=== PATIENT | female | born 1975 | race Caucasian/White ===

== ENCOUNTER 2021-05-23 11:56 | Outpatient (CLI) | payer OTHER, SELFPAY ==
--- NOTE | 2021-05-23 | ECG_ITS ---
Measurements Intervals [place] Rate: 55 P: 37 WY: 153 QRS: 32 QRSD: 89 T: 36 QT: 401 QTc: 384 Interpretive Statements SINUS BRADYCARDIA BASELINE ARTIFACT- III, V3 BORDERLINE ECG Electronically Signed On 05-23-2021 13:00:52 TAPER/FINISHER by Clive Maurice D.O.
== END 2021-05-23 11:57 | disposition home or self-care (01) ==
LOC: ANHCARD 12:10
PROVIDERS: Visit Provider Surgery Plastic and Reconstructive Surgery
DX: Z01.818 Encounter for other preprocedural examination (principal); R94.31 Abnormal electrocardiogram [ECG] [EKG]
CPT/HCPCS: 93005

== ENCOUNTER 2022-04-03 12:27 | Outpatient (CLI) | payer OTHER, SELFPAY ==
[2022-04-03 13:34] LABS: Hematocrit 35.4 % (37.0-47.0); Hemoglobin 12.1 g/dL (12.0-15.0)
== END 2022-04-03 12:28 | disposition home or self-care (01) ==
PROVIDERS: Anesthesiology; Visit Provider Surgery Plastic and Reconstructive Surgery
DX: Z41.1 Encounter for cosmetic surgery (principal)
CPT/HCPCS: 36415; 85014; 85018

== ENCOUNTER 2022-04-09 01:08 | Day surgery (SDC) | payer OTHER, SELFPAY ==
[2022-04-01 12:05] VITALS: BMI 36.6
--- NOTE | 2022-04-01 12:09 | PC.NURSE ---
Report to the Outpatient Waiting Room, entrance under the green pavilion located off [facility], at time 0600 on date 04/09/22. Planned Procedure Time: 0730. Time changes happen often and if your time is changed the preop area will call you the afternoon before. - You and your visitor will be asked to self-screen and do not enter if you have any COVID symptoms. - We encourage only one visitor and NO visitors under age 16 are allowed at this time. Your visitor will receive communication by the phone number that is given day of service. - The patient visitor is requested to social distance or may leave the building when not with patient due to restrictions. - A mask is OPTIONAL within the hospital. Patients may have clear liquids (water, carbonated beverages, clear teas, apple juice) until 3 hours prior to surgery with a maximum of 20 ounces. - No food from midnight until time of surgery Take the following medications with a SIP of water the morning of surgery: BUPROPION, BUSPIRONE, ESCITALOPRAM, LAMOTRIGINE Medications to discontinue per physician: VITAMINS Date to take last dose: 04/05/22 Please no make-up, nail venezuelan, hairspray, perfume, deodorant, or body powder the day of surgery. No jewelry (including any body piercings) or valuables the day of surgery, leave them at home. Please take a shower or bath the night before, or the morning of, surgery with an antibacterial soap. Wear comfortable, loose fitting clothing. - Jewelry must be removed prior to entering the operating room. Rings and piercings that are not removed may be cut off. - The hospital will not accept responsibility for valuables. - Please leave all valuables, including medications, at home the day of surgery. If you are going home after surgery, a licensed cement mixer driver must drive you home. - NO public transportation without another adult. - We recommend that an adult stay with you for 24 hours following discharge. - We also recommend that you do not drive, make important decision, drink alcoholic beverages, or take any drugs that were not prescribed by your health care provider for at least 24 hours after your discharge time. Follow any additional instructions given to you from your surgeon. If you or anyone in your household have experienced Covid symptoms in the past week, please notify your surgeon or the nurse liaison at the phone number below for possible testing. Telephone instructions given to PT - YASMINE PALACIOS and asked if any additional questions and then verbalized understanding. Patient advised to call surgeon office or pre surgery nurse liaison [phone] if any additional questions.
[2022-04-09] VITALS (10 sets, daily range): BP systolic 116–144; BP diastolic 53–80; PULSE 68–97; RESP 12–18; TEMP 36.3–38.1; O2SAT 95–100
--- NOTE | 2022-04-09 06:58 | WPDHPUPDATE1 ---
History and Physical Update Update Date/Time: 04/09/22 06:58 History and Physical has been reviewed, including an updated exam of the patient. There are NO changes in the patient's condition. Risks, benefits, and alternatives have been discussed and questions answered. Patient agrees to proceed with procedure.
[2022-04-09] MEDS: LACTATED RINGERS 1,000 ML 30 ML IV CONT ×2 (07:00→12:08)
--- NOTE | 2022-04-09 07:12 | W.PM.PROC2 ---
Procedure Note - Detailed Date of Procedure 04/09/22 Pre-op Diagnosis unacceptable cosmetic appearance Post-op Diagnosis Same Procedure Performed [place] Island[place] butt lift Surgeon Willam Puckett MD Anesthesia General Findings Lipoaspirate 3200 cc Reading sites Abdomen (minimal, history abdominoplasty / liposuction), flanks, back. Fat grafting (verified cannula position by ultrasound) Left hip dip - 200cc Left gluteal - 650cc Right hip dip - 250cc Right gluteal - 600cc Description of Procedure Preoperatively the risks, benefits, alternatives were discussed in extensive detail. I want her to be very realistic about the risks involved as well as expectations. I was very up front honest about the limitations of the procedure, realistic expectations, and the risks. I want her to be very clear despite all best efforts there is still a risk of with this procedure. This was outlined extensively due to the severe nature and I wanted her to be clear. We discussed her goals and what I could and could not accomplish. She voiced a clear understanding of this risk as well as the literature rates. All questions were answered to her satisfaction today. Consent obtained. She was marked in the preoperative holding area with her verification. We discussed her goals during this portion. Explained I can never completely achieve her goals as we are working with her unique anatomy which can differ from her goals. She was taken to the operating room. Anesthesia provided by anesthesiology. Lora catheter started. Prepped and draped in a standard sterile fashion. This was a 360 degree prep. Stab incisions were made and used a tumescent solution. Once adequate time for hemostasis was completed using a 4 mm basket cannulas and modification S.A.F.E. technique I completed suction lipectomy of the areas described as above. This was to a microaire gravity separation canister. Volume removed was based on preoperative planning, intraoperative observation, and rolling pinch test which was in full agreement. During the procedure we did turn her from side to side in order to complete the goals as well as verify the appearance. Fat grafting was completed with a 4mm basket cannula with tubing to 50cc syringes operated by instructional support specialist. This was also based on preoperative planning, intraoperative observation to final contour. Finally we placed prone and completed the suction lipectomy the back. Grafting was completed with ultrasound verification of position. Dressings were placed. She was woken taken the PACU without difficulty. All instrument sponge counts were correct at the end of the case. Estimated Blood Loss 50 Drains No Packing No Pathology None sent Complications No immediate complications Condition Stable Disposition PACU
--- NOTE | 2022-04-09 07:19 | P.PNAN_ITS ---
Anes - Initial Pre Proc Eval Procedure: Operation Date: 04/09/22 07:30 Proposed Procedures p [place] Buttock Lift - Willam Puckett MD Date/Time: 04/09/22 07:19 Surgeon: Willam Puckett MD Pre Op Diagnosis: unacceptable cosmetic appearance Patient Data Age: 46 Gender: F Height: 1.65 m Weight: 99.8 kg Allergies Allergy/AdvReac Type Severity Reaction Status Date / Time No Known Allergies Allergy Verified 04/01/22 12:04 Home Medications Medication Instructions Recorded Confirmed Type buspirone 30 mg tablet 30 mg PO DAILY 12/26/20 04/01/22 History escitalopram oxalate 20 mg tablet 20 mg PO DAILY 12/26/20 04/01/22 History lamotrigine 200 mg tablet 200 mg PO DAILY 12/26/20 04/01/22 History bupropion HCl 300 mg 24 hr tablet, 300 mg PO DAILY 06/06/21 04/01/22 History extended release (Wellbutrin XL) cholecalciferol (vitamin D3) 25 25 mcg PO DAILY 06/06/21 04/01/22 History mcg (1,000 unit) chewable tablet (Vitamin D3) Laboratory Tests 04/09/22 06:38 Cotinine Pending Patient hx anesthesia problems: none Family hx anesthesia problems: none Results Review: All pre-operative results and documents have been reviewed as part of the pre- operative evaluation. [facility] Past Medical History Medical History (Updated 06/07/21 @ 14:48 by Jose Hanley DO) Anxiety Depression Surgical History Surgical History (Updated 06/07/21 @ 14:48 by Jose Hanley DO) History of bilateral breast reduction surgery History of left knee surgery Social History Social History Smoking status: Never smoker Alcohol intake: never Substance use: never Substance use type: does not use Living arrangements: with family Spiritual care concerns: No Anes - Eval Final PreProcedure Day of Procedure 04/09/22 07:19 Patient weight: obese Heart: regular rate and rhythm Lungs: clear to auscultation Airway: Mallampati scale class II Neurological: alert and oriented Last oral intake: >/= 8 hours ASA classification: II Emergent: no Anesthetic plan: proceed Anesthesia type and monitoring: general ETT and standard monitoring Results Review: All pre-operative results and documents have been reviewed as part of the pre- operative evaluation. Informed Consent: The patient's anesthetic plan and its attendant risks and benefits were discussed with the patient/family/POA. Questions were solicited and answers provided to the satisfaction of the patient/family/POA.
[2022-04-09] MEDS: ceFAZolin 2 GM/D5W 50 ML 2 GM/50 ML BAG IVPB (07:35)
[2022-04-09 08:01] LABS: Urine Cotinine NEGATIVE
--- NOTE | 2022-04-09 09:44 | SUR.OPER ---
right lateral 0855 to 0915. left lateral [id number].
--- NOTE | 2022-04-09 10:14 | SUR.OPER ---
prone position 10:00 log rolled with assistance of 6 staff/anesthesia at head.
--- NOTE | 2022-04-09 10:20 | SUR.OPER ---
prone start 10:20
[2022-04-09] MEDS: LACTATED RINGERS IRRIG 1,000 ML, LIDOCAINE HCL 1% LOCAL INJ 50 ML, EPINEPHrine HCL INJ ... INFILTRATE (10:37)
[2022-04-09] MEDS: ceFAZolin SODIUM 1 GM VIAL IV PUSH (11:31)
--- NOTE | 2022-04-09 11:40 | SUR.OPER ---
total liposuction 3200cc total fat infliltration 800cc right 800cc left. EBL 50ml
--- NOTE | 2022-04-09 12:16 | SUR.OPER ---
Dr Puckett office to bring full torso suit from office to hospital for patient. PACU aware patient must stay prone.
--- NOTE | 2022-04-09 12:17 | SUR.OPER ---
to pacu prone 3 pillows under knees for comfort 1 pillow under head for comfort.
--- NOTE | 2022-04-09 13:50 | PC.NURSE ---
This patient, Concepcion Reid, was received from PACU on 04/09/22 at 1350. Patient/family oriented to unit policies and routines
[2022-04-09] MEDS: LACTATED RINGERS 1,000 ML 125 ML IV CONT ×2 (14:07→22:10)
[2022-04-09] MEDS: KETOROLAC 15 MG/ML VIAL (*BKC) IV PUSH (14:15)
[2022-04-09] MEDS: GABAPENTIN 300 MG CAPSULE PO ×2 (14:55→21:13)
[2022-04-09] MEDS: MORPHINE SULFATE (*CRX) 2 MG/ML INJ IV PUSH ×2 (14:55→17:14)
[2022-04-09] MEDS: DOCUSATE SODIUM 100 MG CAPSULE PO (21:13)
[2022-04-09] MEDS: ENOXAPARIN 40 MG/0.4 ML SYRINGE SUB-Q (21:13)
[2022-04-09] MEDS: oxyCODONE/ACETAMINOPHEN (*CRX) 5-325 MG TABLET PO (21:14)
[2022-04-10 00:25] VITALS: BP 138/80; PULSE 85; RESP 18; TEMP 36.9
[2022-04-10] MEDS: oxyCODONE/ACETAMINOPHEN (*CRX) 5-325 MG TABLET PO ×2 (02:46→10:49)
[2022-04-10 04:30] VITALS: BP 126/71; PULSE 90; RESP 18; TEMP 37.4
--- NOTE | 2022-04-10 06:50 | WPDPN ---
Progress Note: A&P Assessment and Plan (1) Elective procedure for unacceptable cosmetic appearance: Code(s): Z41.1 - Encounter for cosmetic surgery Status: Acute Assessment and Plan: She is doing very well after [place] Butt Lift. Will discharge home. Follow-up in 1 week. Today we had a lengthy discussion about the care. Activity limitations. What to monitor for. What is an emergency and when to proceed to ER / dial 911. She voiced a clear understanding. Call with any other questions or concerns. Subjective Date/time seen: 04/10/22 06:50 Interval history: She is doing very well after BBL. Laying prone. Has ambulated. She states minimal pain. No f/c. No n/v. No SOB. No CP. No calf tenderness. Review of Systems Review of Systems: All systems reviewed & are unremarkable except as noted in HPI and below Exam Narrative: A&O NOD Resp unlabored Abdomen / flank / back / buttocks soft. No sings of infection. No hematoma. No seroma. No calf tenderness. Negative Homann's Objective Data Vital Signs Vital Signs: Vital Signs - 24 hr 04/09/22 07:12 04/09/22 12:08 04/09/22 12:35 Temperature 36.6 C 36.3 C L Pulse Rate 68 90 88 Respiratory Rate 14 14 12 Blood Pressure 119/63 116/53 L 120/69 Pulse Oximetry 98 100 100 Oxygen Delivery Room Air Simple Face Mask Simple Face Mask Oxygen Flow Rate 6 6 04/09/22 12:50 04/09/22 12:40 04/09/22 13:05 Temperature Pulse Rate 79 97 Respiratory Rate 12 14 Blood Pressure 124/75 134/66 Pulse Oximetry 97 97 Oxygen Delivery Room Air Room Air Room Air Oxygen Flow Rate 04/09/22 12:20 04/09/22 13:20 04/09/22 13:55 Temperature 37.2 C Pulse Rate 87 77 97 Respiratory Rate 14 14 16 Blood Pressure 129/67 137/73 144/80 H Pulse Oximetry 100 99 95 Oxygen Delivery Simple Face Mask Room Air Oxygen Flow Rate 6 04/09/22 17:00 04/09/22 19:30 04/10/22 00:25 Temperature 37.4 C 38.1 C H 36.9 C Pulse Rate 78 88 85 Respiratory Rate 16 18 18 Blood Pressure 138/80 127/68 138/80 Pulse Oximetry 100 Oxygen Delivery Oxygen Flow Rate 04/10/22 04:30 Temperature 37.4 C Pulse Rate 90 Respiratory Rate 18 Blood Pressure 126/71 Pulse Oximetry Oxygen Delivery Oxygen Flow Rate Intake/Output Intake/Output: Intake & Output 04/07/22 04/08/22 04/09/22 04/10/22 23:59 23:59 23:59 23:59 Intake Total 1870 1108 Output Total 450 1750 Balance 1420 -642 Meds/Results Medications: Active Medications Generic Name Dose Route Start Last Admin Trade Name Freq PRN Reason Stop Dose Admin Bupropion HCl 300 mg 04/10/22 09:00 Bupropion Hcl Xl (24 Hr) 150 Mg Tabcr PO DAILY [facility] Buspirone HCl 30 mg 04/10/22 09:00 Buspirone Hcl 10 Mg Tablet PO DAILY [facility] Docusate Sodium 100 mg 04/09/22 21:00 04/09/22 21:13 Docusate Sodium 100 Mg Capsule PO 100 mg Q12HR PENELOPE Administration Enoxaparin Sodium 40 mg 04/09/22 21:00 04/09/22 21:13 Enoxaparin 40 Mg/0.4 Ml Syringe SUB-Q 40 mg HS PENELOPE Administration Escitalopram Oxalate 20 mg 04/10/22 09:00 Escitalopram Oxalate 10 Mg Tablet PO DAILY [facility] Gabapentin 300 mg 04/09/22 13:00 04/09/22 21:13 Gabapentin 300 Mg Capsule PO 300 mg TID PENELOPE Administration Lactated Ringer's 1,000 mls @ 125 mls/hr 04/09/22 12:05 04/10/22 05:05 Lr - Lactated Ringers Iv IV CONT Not Given .Q8H [facility] Ketorolac Tromethamine 15 mg 04/09/22 12:02 04/09/22 14:15 Ketorolac 15 Mg/Ml Vial (*Bkc) IV PUSH 15 mg Q6H PRN Administration Pain Rated 4-6 Morphine Sulfate 2 mg 04/09/22 12:02 04/09/22 17:14 Morphine Sulfate (*Crx) 2 Mg/Ml Inj IV PUSH 2 mg Q2H PRN Administration Pain Ondansetron HCl 4 mg 04/09/22 12:02 Ondansetron Inj 4 Mg/2 Ml Vial IV PUSH Q6H PRN Nausea Oxycodone/Acetaminophen 1 - 2 tablet 04/09/22 12:02 04/10/22 02:46 Oxycodone/Acetaminophen (*Crx) 5-325 Mg Tablet PO 2 tablet Q6H
--- NOTE | 2022-04-10 07:07 | P.DS_ITS ---
DS: Admitting Diagnosis Discharge Date 04/10/2022 Admitting Diagnosis Encounter for cosmetic surgery DS: Discharge Diagnosis Discharge Diagnosis (1) Elective procedure for unacceptable cosmetic appearance: Code(s): Z41.1 - Encounter for cosmetic surgery Status: Acute DS: Summary Hospital Course Hospital Course: Underwent Bulgarian butt Lift. Has done very well postopertivly. Will plan for discharge home. Time Spent with Patient Time attestation: Total time spent providing and/or coordinating discharge services: Exam Narrative: A&O NOD Resp unlabored Abdomen / flank / back / buttocks soft. No sings of infection. No hematoma. No seroma. No calf tenderness. Negative Homann's DS: Data Data Completed and Pending Labs on day of discharge: Labs from last 24 hours 04/09/22 06:38 Cotinine Negative Discharge Plan Discharge Patient Disposition: Home, Self-Care Discharge Instructions: POST OPERATIVE DISCHARGE INSTRUCTIONS WILLAM PUCKETT M.D. [facility] PLASTIC [facility] [address] [place] [address] * No driving for 24 hours after anesthesia and while you are taking pain medication. * Take all prescribed medication as directed * Diet as tolerated. * No lifting or activity that raises blood pressure for 48 hours. * Regular walking / ambulation. * May shower after discharge. Once you shower do not take pain medication before showering as the combination of medication and heat may cause you to feel dizzy or pass out. * No pools or tubs for 2 weeks. * Call with any questions or concerns. * No sitting / pressure on fat grafting areas for 2 weeks. * Dressing Care: Continue binder. If you have any questions or concerns, please call the office . If it is after hours you will be directed to the equipment validation engineer exchange. Shortness of breath, chest pain, or other medical emergency dial 911 / proceed to the Emergency Room. Stand Alone Forms: General Discharge Instructions Follow-up/Referrals: Willam Puckett MD [Physician] - 1 Week Discharge Medications: Continued lamotrigine 200 mg tablet 200 mg PO DAILY escitalopram oxalate 20 mg tablet 20 mg PO DAILY buspirone 30 mg tablet 30 mg PO DAILY bupropion HCl [Wellbutrin XL] 300 mg Tablet Extended Release 24 Hr 300 mg PO DAILY cholecalciferol (vitamin D3) [Vitamin D3] 25 mcg (1,000 unit) Tablet,Chewable 25 mcg PO DAILY
[2022-04-10 08:20] VITALS: BP 107/59; PULSE 84; RESP 16; TEMP 37.2; O2SAT 99
[2022-04-10 09:00] VITALS: PULSE 84; RESP 16; O2SAT 99
[2022-04-10] MEDS: buPROPion HCL XL (24 HR) 150 MG TABCR 300 MG PO (09:00)
--- NOTE | 2022-04-10 09:00 | PC.NURSE ---
PT introductions made and plan of care discussed per post op cosmetic surgery and plan of care, pain management, daily care activities and pending discharge to home. PT received such instructions this shift per one to one discussion, and demonstrations. PT sole recipient of such instructions and no barriers to learning identified at this time. PT verbalized understanding of such care.
--- NOTE | 2022-04-10 10:29 | WPDANESPN ---
Anes - Prog Note Post-Op Date/Time: 04/10/22 10:29 Cardiovascular status: normal Respiratory status: normal Airway patency: baseline Mental status: baseline Post-Op hydration status: normal Vital Signs: Last Vital Signs Temp 37.2 C 04/10/22 08:20 Pulse 84 04/10/22 08:20 Resp 16 04/10/22 08:20 BP 107/59 L 04/10/22 08:20 Pulse Ox 99 04/10/22 08:20 O2 Del Method Room Air 04/09/22 13:20 O2 Flow Rate 6 04/09/22 12:35 Pain Score (VAS): 10 I/O: Intake & Output 04/09/22 04/10/22 04/10/22 23:59 07:59 15:59 Intake Total 1720 1108 Output Total 450 1750 Balance 1270 -642 Post-procedural complaints: none Patient Feedback: Patient satisfied with anesthetic care.
[2022-04-10] MEDS: GABAPENTIN 300 MG CAPSULE PO (10:49)
--- NOTE | 2022-04-10 11:30 | PC.NURSE ---
PT received discharge instructions per protocol and verbalized understanding of such care.
--- NOTE | 2022-04-10 11:57 | PC.NURSE ---
PT discharged to home ambulatory accompanied by spouse and taken to waiting car. follow up appts confirmed
== END 2022-04-10 11:57 | disposition home or self-care (01) ==
LOC: ANHSURGERY 12:08 → ANHOB2 13:10
PROVIDERS: Visit Provider Surgery Plastic and Reconstructive Surgery
PROC: (CPT 15832; principal; 2022-04-09 07:30)
DX: Z41.1 Encounter for cosmetic surgery (principal); F41.9 Anxiety disorder, unspecified; F32.A Depression, unspecified; E66.9 Obesity, unspecified; Z68.37 Body mass index [BMI] 37.0-37.9, adult
CPT/HCPCS: 15771; 15772 ×33; 80307; 99199; A9270; J0171; J0330; J0690; J1100; J1170; J1650; J1885; J2250; J2270; J2370; J2590; J2704; J7120